=== PATIENT | male | born 1975 | race Caucasian/White ===

== ENCOUNTER → 2023-12-14 10:13 | Outpatient (REF) | payer BC, SELFPAY | LOC: RAD 10:13 | PROVIDERS: ATTENDING PHYSICIAN Podiatrist Foot & Ankle Surgery; FAMILY PHYSICIAN Internal Medicine | DX: M79.672 Pain in left foot (principal) | CPT/HCPCS: 73630 ==

== ENCOUNTER → 2024-03-14 07:42 | Outpatient (REF) | payer BC, SELFPAY ==
[2024-03-14 08:58] LABS: % Eosinophils 2.1 % (0-6); % Immature Granulocytes 0.4 % (0-0.5); % Lymphocytes 26.5 % (20.5-51.1); % Monocytes 10.6 % (1.7-9.3); % Neutrophils 59.4 % (42.2-75.2); Absolute Basophils 0.1 10^3/uL (0-0.2); Absolute Eosinophils 0.1 10^3/uL (0-0.7); Absolute Lymphocytes 1.4 10^3/uL (1.2-3.4); Absolute Monocytes 0.6 10^3/uL (0.1-0.6); Absolute Neutrophils 3.1 10^3/uL (1.4-6.5); Hematocrit 44.4 % (39.0-52.0); Hemoglobin 15.1 g/dL (13.0-18.0); Mean Corpuscular Hgb 29.2 pg (27.0-31.0); Mean Corpuscular Volume 85.9 fL (80.0-94.0); Mean Platelet Volume 11.3 fL (7.4-10.4); Nucleated Red Blood Cells % 0 % (-); Platelet Count 182 10^3/uL (130-400); Red Blood Cell Count 5.17 10^6/uL (4.70-6.10); Red Cell Dist. Width 12.5 % (11.5-14.5); White Blood Cell Count 5.2 10^3/uL (4.8-10.8)
[2024-03-14 09:20] LABS: Glycohemoglobin (HgbA1c) 5.2 % (4.0-5.6)
[2024-03-14 09:37] LABS: ALT (SGPT) 30 U/L (0-50); AST (SGOT) 28 U/L (17-59); Albumin 4.7 g/dl (3.5-5.0); Alkaline Phosphatase 57 U/L (38-126); Blood Urea Nitrogen 20 mg/dl (9-20); Calcium 9.5 mg/dl (8.4-10.2); Carbon Dioxide 29 mmol/L (22-30); Chloride 102 mmol/L (98-107); Glucose 97 mg/dl (70-99); Potassium 4.4 mmol/L (3.5-5.1); Sodium 137 mmol/L (135-145); eGFR > 60.00
[2024-03-14 09:43] LABS: Vitamin D, 25-OH*** 76.3 ng/mL (30-80)
[2024-03-14 09:57] LABS: PSA, Total - Screen 2.44 ng/ml (0.0-4.0)
== END ==
LOC: REG 07:42
PROVIDERS: ATTENDING PHYSICIAN Internal Medicine
DX: R35.1 Nocturia (principal); R53.83 Other fatigue
CPT/HCPCS: 36415; 80053; 82306; 83036; 85025; G0103

== ENCOUNTER → 2024-06-29 16:29 | Outpatient (REF) | payer BC, SELFPAY | LOC: CLAB 16:29 | PROVIDERS: ATTENDING PHYSICIAN Dermatology | DX: L30.8 Other specified dermatitis (principal) | CPT/HCPCS: 87070; 87077; 87102; 87205 ==

== ENCOUNTER → 2025-02-23 07:57 | Outpatient (REF) | payer BC, SELFPAY ==
[2025-02-23 08:28] LABS: Hematocrit 50.7 % (39.0-52.0); Hemoglobin 16.7 g/dL (13.0-18.0); Mean Corp Hgb Conc. 32.9 g/dL (33.0-37.0); Mean Corpuscular Volume 87.7 fL (80.0-94.0); Nucleated Red Blood Cells % 0 % (-); Platelet Count 177 10^3/uL (130-400); Red Cell Dist. Width 12.6 % (11.5-14.5)
[2025-02-23 09:01] LABS: ALT (SGPT) 33 U/L (0-50); AST (SGOT) 26 U/L (17-59); Albumin 5.1 g/dl (3.5-5.0); Alkaline Phosphatase 55 U/L (38-126); Blood Urea Nitrogen 25 mg/dl (9-20); Calcium 10.0 mg/dl (8.4-10.2); Carbon Dioxide 29 mmol/L (22-30); Chloride 104 mmol/L (98-107); Glucose 107 mg/dl (70-99); HDL Cholesterol 62 mg/dl; LDL Cholesterol, Calculated 140 mg/dl; Potassium 4.9 mmol/L (3.5-5.1); Sodium 140 mmol/L (135-145); Total Protein 7.9 g/dl (6.3-8.2); Very Low Density Lipoprotein 16 mg/dl (0-30); eGFR > 60.00
[2025-02-23 09:26] LABS: TSH 2.52 uIU/ml (0.47-4.68)
[2025-02-25 14:14] LABS: Lyme Antibody Screen, EIA Negative (Negative)
[2025-02-25 17:24] LABS: ANA, IgG Reflex to HEp-2 Detected (None Detected)
[2025-02-27 02:20] LABS: ANA, HEp-2, IgG <1:80 (<1:80)
== END ==
LOC: PAVMRI 07:57
PROVIDERS: ATTENDING PHYSICIAN Internal Medicine
DX: R42 Dizziness and giddiness (principal)
CPT/HCPCS: 36415; 70553; 80053; 80061; 84153; 84154; 84443; 85025; 86038; 86039; 86618; A9575